=== PATIENT | female | born 1995 | race Caucasian/White ===

== ENCOUNTER 2022-08-06 14:37 | Emergency (ER) | payer OTHER ==
[~2022-08-06] VITALS: Ht 157.5 cm; Wt 86.2 kg
[2022-08-06 14:58] VITALS: BP 129/84
[2022-08-06 15:58] LABS: APPEARANCE,URINE SL CLOUDY (CLEAR); BILIRUBIN,URINE NEGATIVE (NEGATIVE); BLOOD, URINE NEGATIVE (NEGATIVE); COLOR,URINE YELLOW (YELLOW); LEUKOCYTE ESTERASE ,URINE 2+ (NEGATIVE); NITRITE, URINE NEGATIVE (NEGATIVE); UGLUCOSE NEGATIVE (NEGATIVE)
[2022-08-06 16:19] LABS: OTHER CASTS, URINE None Seen /LPF (None Seen)
[2022-08-06] MEDS ORDERED: PHEN-1877 PO (17:06)
[2022-08-06] MEDS ORDERED: NITR100C7 PO (17:06)
== END 2022-08-06 17:30 | disposition home or self-care (01) ==
LOC: MED 14:37
DX: N39.0 Urinary tract infection, site not specified (principal); R30.0 Dysuria; Z79.899 Other long term (current) drug therapy
CPT/HCPCS: 76856; 81001; 87086; 99284

== ENCOUNTER 2022-11-02 16:56 | Emergency (ER) | payer OTHER ==
[~2022-11-02] VITALS: Ht 154.9 cm; Wt 98.9 kg
[~2022-11-02 16:56] MED LIST: NITR100C7 PO; PHEN-1877 PO
[2022-11-02 17:03] VITALS: BP 140/82
[2022-11-02] MEDS ORDERED: IBUPROFEN 600 MG TAB PO ONE (17:50)
--- NOTE | 2022-11-02 18:04 | NUR ---
PT TAKEN TO XRAY VIA WC
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
[2022-11-02] MEDS ORDERED: IBUP-1842 PO (18:52)
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
== END 2022-11-02 19:04 | disposition home or self-care (01) ==
LOC: MED 16:56
DX: S80.02XA Contusion of left knee, initial encounter (principal); R10.13 Epigastric pain; Z79.1 Long term (current) use of non-steroidal anti-inflammatories (NSAID); Z79.2 Long term (current) use of antibiotics; Z79.899 Other long term (current) drug therapy; V49.59XA Passenger injured in collision with other motor vehicles in traffic accident, initial encounter; Y93.89 Activity, other specified; Y92.410 Unspecified street and highway as the place of occurrence of the external cause; Y99.8 Other external cause status
CPT/HCPCS: 73562; 99283